=== PATIENT | female | born 1990 | race Caucasian/White ===

== ENCOUNTER 2021-04-22 18:45 | Outpatient (CLI) | payer OTHER | END 2021-04-23 10:51 | disposition home or self-care (01) | LOC: OBS/DEL 18:45 | PROVIDERS: ATTEND Specialist | DX: O26.893 Other specified pregnancy related conditions, third trimester (principal); R10.2 Pelvic and perineal pain; Z20.822 Contact with and (suspected) exposure to COVID-19; Z3A.38 38 weeks gestation of pregnancy ==

== ENCOUNTER 2021-05-05 08:30 | Inpatient (IN) | payer OTHER ==
[~2021-05-05] VITALS: Ht 165.1 cm; Wt 84.4 kg
[2021-05-05] MEDS ORDERED: PRENATAL CAPLE1 EAC1 PO (09:01)
== END 2021-05-07 14:07 | disposition home or self-care (01) | DRG 807 ==
LOC: LDR 08:30 → OB/GYN 08:30
PROVIDERS: ADMIT Specialist; ATTEND Specialist
PROC: 10E0XZZ Delivery of Products of Conception, External Approach (ICD-10-PCS; principal; 2021-05-05)
PROC: 0W8NXZZ Division of Female Perineum, External Approach (ICD-10-PCS; 2021-05-05)
PROC: 10907ZC Drainage of Amniotic Fluid, Therapeutic from Products of Conception, Via Natural or Artificial Opening (ICD-10-PCS; 2021-05-05)
PROC: 4A1HXFZ Monitoring of Products of Conception, Cardiac Rhythm, External Approach (ICD-10-PCS; 2021-05-05)
DX: O70.3 Fourth degree perineal laceration during delivery (principal); Z37.0 Single live birth; Z3A.39 39 weeks gestation of pregnancy

== ENCOUNTER 2021-09-10 21:58 | Emergency (ER) | payer OTHER ==
[~2021-09-10] VITALS: Ht 165.1 cm; Wt 68.0 kg
[~2021-09-10 21:58] MED LIST: PRENATAL CAPLE1 EAC1 PO
[2021-09-11] MEDS ORDERED: AMOX-CLAV 875-1 EACH PO (03:39)
== END 2021-09-11 03:46 ==
LOC: ER 21:58
DX: O91.22 Nonpurulent mastitis associated with the puerperium (principal)